=== PATIENT | female | born 1950 | race Caucasian/White ===

== ENCOUNTER 2019-12-24 11:40 | Outpatient (CLI) | payer MEDICARE, OTHER ==
[2019-12-24] VITALS (21 sets, daily range): BP systolic 100–141; BP diastolic 70–88
== END 2019-12-24 23:59 | disposition home or self-care (01) ==
LOC: CARD DIAG 11:40
PROVIDERS: ATTEND Internal Medicine Cardiovascular Disease
DX: R42 Dizziness and giddiness (principal)
CPT/HCPCS: 93660

== ENCOUNTER 2024-08-23 18:39 | Emergency (ER) | payer MEDICARE, OTHER ==
[~2024-08-23] VITALS: Ht 162.6 cm; Wt 53.6 kg
[2024-08-23 23:19] LABS: BASOPHILS % (AUTO) 0.5 % (0-1); EOSINOPHILS # (AUTO) 0.2 X10'3 (0-0.9); HEMATOCRIT 32.7 % (35.0-45.0); HEMOGLOBIN 10.9 g/dl (12.0-16.0); LYMPHOCYTES # (AUTO) 1.1 X10'3 (1.1-4.8); LYMPHOCYTES % (AUTO) 18.1 % (21-51); MEAN CORPUSCULAR HEMOGLOBIN 31.3 PG (27.0-31.0); MEAN CORPUSCULAR HGB CONC 33.4 g/dL (33.0-36.5); MEAN CORPUSCULAR VOLUME 93.7 FL (78-98); MEAN PLATELET VOLUME 6.6 FL (7.4-10.4); MONOCYTES # (AUTO) 0.6 X10'3 (0-0.9); MONOCYTES % (AUTO) 10.1 % (2-12); NEUTROPHILS # (AUTO) 4.1 X10'3 (1.8-7.7); NEUTROPHILS % (AUTO) 68.3 % (42-75); PLATELET COUNT 286 X10'3 (140-440); RED BLOOD COUNT 3.48 X10'6 (4.20-5.60); RED CELL DISTRIBUTION WIDTH 14.1 % (11.5-14.5)
[2024-08-23 23:29] LABS: ALBUMIN 3.4 G/DL (3.4-5.0); ANION GAP 7 (8-16); BLOOD UREA NITROGEN 15 MG/DL (7-18); BUN/CREATININE RATIO 15.3 (10.0-20.0); CALCIUM 8.4 MG/DL (8.5-10.1); CHLORIDE 105 MMOL/L (99-107); CREATININE 0.98 MG/DL (0.40-0.90); GLUCOSE 104 MG/DL (70-104); POTASSIUM 3.7 MMOL/L (3.5-5.1); SODIUM 140 MMOL/L (135-145); TOTAL CARBON DIOXIDE 28.3 MMOL/L (24-32); eCRCL 43 ML/MIN; eGFR 55 ML/MIN
[2024-08-24] MEDS ORDERED: ESZO3TAB40 (00:56)
[2024-08-24] MEDS ORDERED: ROSU20TA98 PO (00:56)
[2024-08-24] MEDS ORDERED: MELO-102 (00:56)
[2024-08-24] MEDS ORDERED: ASPI-1397 PO (00:56)
[2024-08-24] MEDS ORDERED: GABA300T28 (00:56)
[2024-08-24] MEDS ORDERED: GABAPENTIN (00:56)
[2024-08-24] MEDS ORDERED: UMEC1DIS (00:56)
[2024-08-24] MEDS ORDERED: gabapentin 300mg capsule PO ONE (01:15)
[2024-08-24] MEDS: gabapentin 300mg capsule PO ONE (01:30)
[2024-08-24] MEDS: CefTRIAXone/D5W-Rocephin 1gm 50 ML IV ONE (02:20)
[2024-08-24] MEDS ORDERED: CEPH-585 PO (02:23)
[2024-08-24 02:56] VITALS: BP 168/92; PULSE 76; RESP 16; TEMP 98.2; O2SAT 95
== END 2024-08-24 03:07 | disposition home or self-care (01) ==
LOC: ER 18:40
DX: L03.115 Cellulitis of right lower limb (principal); Z88.5 Allergy status to narcotic agent; Z79.1 Long term (current) use of non-steroidal anti-inflammatories (NSAID); Z79.82 Long term (current) use of aspirin; Z79.899 Other long term (current) drug therapy
CPT/HCPCS: 36415; 80048; 83735; 84145; 85025; 87070; 87186; 96365; 99284; A6446; J0696; 87077